=== PATIENT | female | born 1985 | race Caucasian/White ===

== ENCOUNTER 2020-03-11 22:02 | Emergency (ER) | payer MEDICAID, SELFPAY ==
[2020-03-11 22:23] VITALS: BP 150/99; PULSE 116; RESP 18; TEMP 36.8; O2SAT 98; BMI 24.1
[2020-03-12 01:20] VITALS: BP 153/100; PULSE 86; RESP 20; TEMP 37.1; O2SAT 95
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
[2020-03-12] MEDS: acetaminophen 500 mg Tablet PO (02:27)
== END 2020-03-12 02:52 | disposition home or self-care (01) ==
PROVIDERS: Emergency Provider Physician Assistant
DX: O9A.311 Physical abuse complicating pregnancy, first trimester (principal); Z3A.10 10 weeks gestation of pregnancy; R51 Headache; Y04.2XXA Assault by strike against or bumped into by another person, initial encounter; F17.210 Nicotine dependence, cigarettes, uncomplicated
CPT/HCPCS: 12345; 70450; 99281; 99283

== ENCOUNTER 2020-03-15 21:20 | Inpatient (IN) | payer MEDICAID, SELFPAY ==
[2020-03-15 21:26] VITALS: BP 153/95; PULSE 106; RESP 18; TEMP 36.2; O2SAT 91; BMI 24.1
[2020-03-15 21:59] LABS: Basophils % 0.4 %; Eosinophils # 0.1 10^3/uL (0.0-0.8); Eosinophils % 0.7 %; Hematocrit 37.7 % (37.0-47.0); Hemoglobin 11.5 g/dL (11.5-15.3); Lymphocytes # 2.6 10^3/uL (0.8-4.8); Lymphocytes % 30.7 %; Mean Corpuscular HGB Conc 30.5 g/dL (30.0-36.0); Mean Corpuscular Hemoglobin 29.9 pg (28.0-34.0); Mean Corpuscular Volume 97.9 fL (81-99); Mean Platelet Volume 10.6 fL (7.4-10.4); Monocytes # 0.5 10^3/uL (0.2-0.9); Neutrophils # 5.3 10^3/uL (1.8-7.7); Nucleated Red Blood Cells % 0 %; Platelet Count 281 10^3/cmm (130-400); Red Blood Count 3.85 10^6/uL (4.1-5.3); White Blood Count 8.5 10^3/uL (4.0-10.0)
--- NOTE | 2020-03-15 22:05 | ED_ITS ---
HPI - Psych General: Chief Complaint: Psychiatric Symptoms Stated Complaint: mhe Time Seen by Provider: 03/15/20 21:42 Source: patient Mode of arrival: ambulatory Limitations: no limitations History of Present Illness: HPI Narrative: 34-year-old female who is currently 10 weeks states she is an alcoholic and has been drinking. She states she also has depression and mother states she had made suicidal statements to someone. Patient denies active suicidality currently but states she is very depressed. Patient has drank today. She had sent a text to someone about drinking and taking amitriptyline to kill herself. Associated symptoms: Reports depression Review of Systems Const: Denies: fever(s), chills, body aches or change in appetite Eyes: Denies: blurry vision or eye discomfort ENMT: Denies: throat pain or dental pain Card: Denies: chest pain Resp: Denies: dyspnea GI: Denies: abdominal pain, nausea, vomiting or diarrhea : Denies: dysuria Musc: Denies: neck pain or back pain Skin/Breast: Denies: rash Neuro: Denies: headache(s) Psych: Reports: depression Luis/Lymph: Denies: easy bruising All/Imm: Denies: urticaria PFSH ED PFSH: Social History Smoking and tobacco status: current every day smoker Female Reproductive History: Date of last menstrual period: 12/27/19 Physical Exam Const: COMMON NORMALS: no acute distress, patient oriented x3 and healthy appearing HENMT: COMMON NORMALS: normocephalic and atraumatic HEAD & SCALP: normocephalic and atraumatic Eye: COMMON NORMALS: Equal, round and reactive pupils present and EOMs intact bilaterally PUPIL: Yes Equal, round and reactive pupils present Neck/C-Spine: COMMON NORMALS: full ROM and supple Chest: COMMONS NORMALS: normal inspection of the chest and normal palpation of entire chest wall Resp: COMMON NORMALS: normal respiratory effort, No retractions, No use of accessory muscles and clear to auscultation bilaterally AUSCULTATION: clear to auscultation bilaterally Cardio: COMMON NORMALS: regular rate, regular rhythm and No murmurs present (Cardio) RATE: regular rate RHYTHM: regular rhythm GI: COMMON NORMALS: Normal to inspection, nondistended, normoactive bowel sounds present, Soft to palpation, non-tender and no masses PALPATION: Yes Soft to palpation Extremity: COMMON NORMALS: normal to inspection and full ROM Neuro: COMMON NORMALS: patient oriented x3, moves all extremities and no focal motor deficits Psych: COMMON NORMALS: mental status grossly normal, Normal thought process present and cooperative MOOD & AFFECT: Yes depressed mood THOUGHT PROCESS: Normal thought process present Skin: COMMON NORMALS: no rashes or lesions noted and no wounds GENERAL SKIN EXAM: no rashes or lesions noted MDM - Psych MDM Narrative: Medical decision making narrative: Mackenzie presents here with depression along with alcoholism. Patient has no suicidality currently and patient's not placed under 96-hour hold. Patient voluntarily wants to be admitted. I spoke to Dr. Warner and will admit. Patient's bedside ultrasound showed no acute abnormalities and showed IUP with heart rate of 146. I spoke to Dr. Rodriguez to consult as she is . Lab Data: Labs: Lab Results 03/15/20 03/15/20 Range/Units 21:53 21:53 WBC 8.5 (4.0-10.0) 10^3/ uL RBC 3.85 L (4.1-5.3) 10^6/u L Hgb 11.5 (11.5-15.3) g/dL Hct 37.7 (37.0-47.0) % MCV 97.9 (81-99) fL MCH 29.9 (28.0-34.0) pg MCHC 30.5 (30.0-36.0) g/dL RDW 15.0 (12.1-15.1) % Plt Count 281 (130-400) 10^3/c mm MPV 10.6 H (7.4-10.4) fL Neut % (Auto) 62.0 % Lymph % (Auto) 30.7 % Craven % (Auto) 6.0 % Eos % (Auto) 0.7 % Baso % (Auto) 0.4 % Neut # (Auto) 5.3 (1.8-7.7) 10^3/u L Lymph # (Auto) 2.6 (0.8-4.8) 10^3/u L Craven # (Auto) 0.5 (0.2-0.9) 10^3/u L Eos # (Auto) 0.1 (0.0-0.8) 10^3/u L Baso # (Auto) 0.0 (0.0-0.1) 10^3/u L Nucleated RBC % (a uto) 0 % Nucleated RBCs # 0.0 /100WBC Sodium 139 (136-145) mmol/L Potassium 4.1 (3.5-5.1) mmol/L Chloride 102 (98-107) mmol/L Carbon Dioxide 23 (22-29) mmol/L Anion Gap 18.1 (5-19) BUN 5 L (6-20) mg/dL Creatinine 0.6 (0.5-0.9) mg/dL GFR Calculation 113.1 (90-130) mL/min Glucose 87 (65-115) mg/dL Calculated Osmolal ity 283 L (285-295) mOsm/k g Calcium 8.7 (8.5-10.5) mg/dL Total Bilirubin 0.2 (0.15-1.2) mg/dL ALT 12 (0-33) U/L Alkaline Phosphata se 60 (35-105) IU/L Total Protein 7.2 (6.6-8.7) g/dL Albumin 4.2 (3.5-5.2) g/dL Globulin 3.0 (1.3-4.6) g/dL Discharge Plan Discharge Patient Disposition: Admitted As Inpatient Clinical Impression: Depression Qualifiers: Depression Type: unspecified Qualified Code(s): F32.9 - Major depressive disorder, single episode, unspecified Qualifiers: Weeks of gestation: 11 weeks Qualified Code(s): Z3A.11 - 11 weeks gestation of Condition: Stable Coding Level of Care Code ED Fire Department Marine Engineer for g Fwd Exam Comprehensive
[2020-03-15 22:15] LABS: Alanine Aminotransferase 12 U/L (0-33); Albumin Level 4.2 g/dL (3.5-5.2); Alkaline Phosphatase 60 IU/L (35-105); Anion Gap 18.1 (5-19); Blood Urea Nitrogen 5 mg/dL (6-20); Calcium 8.7 mg/dL (8.5-10.5); Carbon Dioxide 23 mmol/L (22-29); Chloride 102 mmol/L (98-107); Glomerular Filtration Rate 113.1 mL/min (90-130); Glucose 87 mg/dL (65-115); Osmolality Calculated 283 mOsm/kg (285-295); Potassium 4.1 mmol/L (3.5-5.1); Sodium 139 mmol/L (136-145); Total Bilirubin 0.2 mg/dL (0.15-1.2); Total Protein 7.2 g/dL (6.6-8.7)
[2020-03-15 22:31] LABS: Acetaminophen < 5.0 ug/mL (10-30); Alcohol Level 304 mg/dL (0-10); Aspartate Amino Transferase 28 U/L (0-32); Salicylate < 0.3 mg/dL (3-10)
[2020-03-15 23:16] LABS: Amphetamines Screen Urine Negative (Negative); Barbiturates Screen Urine Negative (Negative); Benzodiazepines Screen Urine Negative (Negative); Cocaine Screen Urine Negative (Negative); Opiate Screen Urine Negative (Negative); PCP Screen Urine Negative (Negative); THC Screen Urine Negative (Negative)
[2020-03-15 23:17] LABS: HCG Qualitative Urine. Positive (Negative)
[2020-03-15 23:55] VITALS: BP 136/92; PULSE 84; RESP 18; O2SAT 99
--- NOTE | 2020-03-16 00:01 | PC.NURSE ---
i agree with this assessment
[2020-03-16 00:22] VITALS: BP 138/94; PULSE 95; RESP 18; TEMP 36.8; O2SAT 95
[2020-03-16 06:00] VITALS: BP 147/100; PULSE 90; RESP 17; TEMP 36.7; O2SAT 98
--- NOTE | 2020-03-16 06:29 | US_ITS ---
WS: [id number] ULTRASOUND OB LIMITED TECHNIQUE: Limited ultrasound examination of the fetus. CLINICAL INFORMATION: COMPARISON: None. FINDINGS: Cervix 3.1 cm Single interuterine gestation. Movement visualized. presentation is breech Placental location is anterior. Placenta grade: 0. heart rate 176 BPM. Anatomy: BDP: 2.4 cm = 14w0d HC: 8.9 cm = 14w0d AC: 7.3 cm = 13w6d FEMUR LENGTH: 1.2 cm = 13w3d Estimated weight: 80 g EGA by ultrasound: 13w6d MIKHAIL by ultrasound: 09/15/2020 US/US OB <= 14 weeks fetus [id number] IMPRESSION: 1. Single intrauterine gestation with movement visualized. 2. Presentation is breech with anterior placenta. 3. Normal adnexa. 4. Estimated gestational age 13 weeks 6 days with estimated delivery September 15, 2020
--- NOTE | 2020-03-16 10:25 | P.HP_ITS ---
Providers/Chief Complaint Admitting Physician: Abel Warner MD Referral Source: [facility] Chief Complaint: mhe HPI NPU History of Present Illness Mackenzie Leyva is a 34 year old female who is currently 13 weeks and states she is an alcoholic. Ultrasound shows viable fetus of EGA 13W6D. She has been drinking (BAL 0.304 mg/dL). She states she also has depression and mother states she had made suicidal statements to someone. Patient denies active suicidality currently but states she is very depressed. She is sad all the time but does not know why. Patient has drank today. She had sent a text to someone about drinking and taking amitriptyline to kill herself. She feels hopeless, anergic and has no motivation. She knows that drinking will alert the baby but cannot stop and so asked for admission. Review of Systems Narrative: Const: Denies: fever(s), chills, body aches or change in appetite Eyes: Denies: blurry vision or eye discomfort ENMT: Denies: throat pain or dental pain Card: Denies: chest pain Resp: Denies: dyspnea GI: Denies: abdominal pain, nausea, vomiting or diarrhea : Denies: dysuria Musc: Denies: neck pain or back pain Skin/Breast: Denies: rash Neuro: Denies: headache(s) Psych: Reports: depression Luis/Lymph: Denies: easy bruising All/Imm: Denies: urticaria Meds NPU Home Medications Medication Instructions Recorded Confirmed Last Taken Type acetaminophen [Tylenol] 325 mg PO QID PRN 03/15/20 03/15/20 03/15/20 History amitriptyline 50 mg PO BEDTIME 03/15/20 03/15/20 03/15/20 History calcium carbonate [Calcium 600] 300 mg PO DAILY 03/15/20 03/15/20 03/15/20 History vitamin B complex 1 tab PO DAILY 03/15/20 03/15/20 03/15/20 History Allergies Allergy/AdvReac Type Severity Reaction Status Date / Time Sulfa (Sulfonamide Allergy Intermediate ALGY-Rash Verified 03/15/20 21:42 Antibiotics) PFSH NPU PFSH: Social History Smoking and tobacco status: current every day smoker Other Psychiatric History: Other Psychiatric History: The patient is na?ve to inpatient treatment. She has been given amitriptyline to assist her with sleep, which is dangerous in a suicidal patient. Female Reproductive History: Date of last menstrual period: 11/26/19 control method: none : 3 Para: 2 Mental Status Exam MSE Comments: This is a 34-year-old female who presents at her stated age. She is clean, neat and not disheveled. Mood, however, is despondent and affect is flat. She describes inability to experience pleasure (anhedonia), anergy, lack of motivation, hopelessness and desperation to get off alcohol. Thought processes are organized and free of any racing, blocking or looseness of association. Cognitive functions are adequate for safety. Orientation is intact. Memory function, when she does not black out, is good. She denies suicidal or homicidal ideation, plan or intent. Insight and judgment are intact Vitals/I&O/Wt Last Vital Signs Temp 98.0 F 03/16/20 06:00 Pulse 90 03/16/20 06:00 Resp 17 03/16/20 06:00 BP 147/100 03/16/20 06:00 Pulse Ox 98 03/16/20 06:00 Weight last 48 hrs Weight 145 lb Physical Exam Narrative: EXAM NARRATIVE: Const: COMMON NORMALS: no acute distress, patient oriented x3 and healthy appearing HENMT: COMMON NORMALS: normocephalic and atraumatic HEAD & SCALP: normocephalic and atraumatic Eye: COMMON NORMALS: Equal, round and reactive pupils present and EOMs intact bilaterally PUPIL: Yes Equal, round and reactive pupils present Neck/C-Spine: COMMON NORMALS: full ROM and supple Chest: COMMONS NORMALS: normal inspection of the chest and normal palpation of entire chest wall Resp: COMMON NORMALS: normal respiratory effort, No retractions, No use of accessory muscles and clear to auscultation bilaterally AUSCULTATION: clear to auscultation bilaterally Cardio: COMMON NORMALS: regular rate, regular rhythm and No murmurs present (Cardio) RATE: regular rate RHYTHM: regular rhythm GI: COMMON NORMALS: Normal to inspection, nondistended, normoactive bowel sounds present, Soft to palpation, non-tender and no masses PALPATION: Yes Soft to palpation Extremity: COMMON NORMALS: normal to inspection and full ROM Neuro: COMMON NORMALS: patient oriented x3, moves all extremities and no focal motor deficits Psych: See MSE. Skin: COMMON NORMALS: no rashes or lesions noted and no wounds GENERAL SKIN EXAM: no rashes or lesions noted. Data NPU : 03/15/20 21:53 03/15/20 21:53 A&P Assessment and plan (1) : I have consulted with Dr. Rodriguez. Recovery Operator and I agree that Wellbutrin (risk category B), which is the only antidepressant at that low risk category, Status: Chronic Qualifiers: Weeks of gestation: 11 weeks Qualified Code(s): Z3A.11 - 11 weeks gestation of (2) Depression: The patient will be placed on Wellbutrin and involved in milieu. Dischar ge referral will include a rehab program. Follow-up at [facility] will be necessitated. Status: Acute Qualifiers: Depression Type: unspecified Qualified Code(s): F32.9 - Major depressive disorder, single episode, unspecified Involuntary Hold Information 96 Hour Hold: 96 Hour Involuntary Admission: No Attestations NPU Medical Necessity Statement*: This is a complex case involving a fetus as well as the mother. I anticipate 7-10 midnights additional hospitalization. Time Spent in Patient Care: Greater than 35 minutes (>than 50% of time spent in counselling and/or direct pt care on unit) . Consultation with staff and with Dr. Rodriguez. Interview with patient and patient education. Consultation with hospital pharmacist and research regarding risk categories of various psychotropics. Documentation. 80 minutes Coding Level of Care Code Acute Manager Internal for Chg Fwd Diagnoses Z3A.11 Weeks of gestation: 11 weeks Depression F32.9 Depression Type: unspecified
[2020-03-16 12:34] VITALS: BP 143/97; PULSE 88; RESP 18; TEMP 37.3; O2SAT 100
[2020-03-16] MEDS: buPROPion SR (12 HR) 100 mg Tablet PO (16:37)
--- NOTE | 2020-03-16 16:57 | P.PN_ITS ---
Subjective Subjective: Interval history: 34-year-old female with an EGA of 13+6 weeks by ultrasound. Admitted due to depressed mood. High risk due to alcohol consumption endometrium early . Vitals/I&O/Wt Last Vital Signs Temp 98.7 F 03/18/20 06:00 Pulse 92 03/18/20 06:00 Resp 22 H 03/18/20 06:00 BP 127/88 03/18/20 06:00 Pulse Ox 98 03/18/20 06:00 Physical Exam Narrative: EXAM NARRATIVE: Const: COMMON NORMALS: no acute distress, patient oriented x3 and healthy appearing HENMT: COMMON NORMALS: normocephalic and atraumatic HEAD & SCALP: normocephalic and atraumatic Eye: COMMON NORMALS: Equal, round and reactive pupils present and EOMs intact bilaterally PUPIL: Yes Equal, round and reactive pupils present Neck/C-Spine: COMMON NORMALS: full ROM and supple Chest: COMMONS NORMALS: normal inspection of the chest and normal palpation of entire chest wall Resp: COMMON NORMALS: normal respiratory effort, No retractions, No use of accessory muscles and clear to auscultation bilaterally AUSCULTATION: clear to auscultation bilaterally Cardio: COMMON NORMALS: regular rate, regular rhythm and No murmurs present (Cardio) RATE: regular rate RHYTHM: regular rhythm GI: COMMON NORMALS: Normal to inspection, nondistended, normoactive bowel sounds present, Soft to palpation, non-tender and no masses PALPATION: Yes Soft to palpation Extremity: COMMON NORMALS: normal to inspection and full ROM Neuro: COMMON NORMALS: patient oriented x3, moves all extremities and no focal motor deficits Psych: COMMON NORMALS: mental status grossly normal, Normal thought process present and cooperative MOOD & AFFECT: Yes depressed mood THOUGHT PROCESS: Normal thought process present Skin: COMMON NORMALS: no rashes or lesions noted and no wounds GENERAL SKIN EXAM: no rashes or lesions noted Data : 03/15/20 21:53 03/15/20 21:53 A&P Assessment and plan (1) : 34-year-old female admitted [facility] with major depression. She was unaware that she was until recently. She refers a last menstrual period was somewhere around November. Her EGA by ultrasound is 13w6d. He had been consuming alcohol and lithium early . Patient was encouraged to start care as soon as she is discharge home. Status: Chronic Qualifiers: Weeks of gestation: 11 weeks Qualified Code(s): Z3A.11 - 11 weeks gestation of Attestations Medical Necessity Statement*: In my professional opinion per admitting diagnosis Coding Level of Care Code Acute Van Driver Helper for Chg Fwd Diagnoses Z3A.11 Weeks of gestation: 11 weeks
[2020-03-16 20:38] VITALS: BP 155/105; PULSE 82; RESP 18; TEMP 37; O2SAT 99
[2020-03-17 06:00] VITALS: BP 144/99; PULSE 83; RESP 17; TEMP 36.6; O2SAT 98
[2020-03-17] MEDS: buPROPion SR (12 HR) 100 mg Tablet PO ×2 (08:28→17:25)
[2020-03-17 12:42] VITALS: BP 148/101; PULSE 91; RESP 18; TEMP 37.2
--- NOTE | 2020-03-17 15:21 | PM.NPN ---
Subjective NPU Subjective: Interval history: The patient is feeling much better now. Her mood is brighter and there is no hopelessness in evidence any longer. Another problem has been languishing in the background. She is mildly hypertensive and, after a modicum of research and consultation with the pharmacist, the lisinopril on which she had been is discontinued and replaced with labetalol. We'll have to monitor her blood pressure. Medications: Reviewed: Yes Medication Review Details: Current Medications Acetaminophen (Tylenol) 325 mg PO QID PRN PRN Reason: Pain Bupropion HCl (Wellbutrin Sr (12 Hr)) 100 mg PO BID [facility] Last Admin: 03/17/20 08:28 Dose: 100 mg Documented by: Labetalol HCl (Trandate) 100 mg PO BID [facility] Non-Formulary Medication (Vitamin B Complex) 1 tab PO DAILY [facility] Non-Formulary Medication (Calcium Carbonate [Calcium 600]) 300 mg PO DAILY [facility] Mental Status Exam MSE Comments: This is a 34-year-old female who presents at her stated age. She is clean, neat and not disheveled. Mood is much brighter and affect is variegated and appropriate. She no longer manifest symptoms of a depressive episode. Thought processes are organized and free of any racing, blocking or looseness of association. Cognitive functions are adequate for safety. Orientation is intact. Memory function, when she does not black out, is good. She denies suicidal or homicidal ideation, plan or intent. Insight and judgment are intact. Vitals/I&O/Wt Last Vital Signs Temp 98.9 F 03/17/20 12:42 Pulse 91 03/17/20 12:42 Resp 18 03/17/20 12:42 BP 148/101 03/17/20 12:42 Pulse Ox 98 03/17/20 06:00 Weight last 48 hrs Weight 145 lb Data NPU : 03/15/20 21:53 03/15/20 21:53 A&P Assessment and plan (1) Depression: Patient is responding to pharmacotherapy and milieu. Status: Acute Qualifiers: Depression Type: unspecified Qualified Code(s): F32.9 - Major depressive disorder, single episode, unspecified (2) : Consultation with Dr. Michael salinas has no concerns. Status: Chronic Qualifiers: Weeks of gestation: 11 weeks Qualified Code(s): Z3A.11 - 11 weeks gestation of Involuntary Hold Information 96 Hour Hold: 96 Hour Involuntary Admission: No Attestations NPU Medical Necessity Statement*: Placement will require at least 2 midnights additional time Time Spent in Patient Care: Greater than 35 minutes (>than 50% of time spent in counselling and/or direct pt care on unit). Coding Level of Care Code Acute [employer] Professor for [place] Diagnoses Depression F32.9 Depression Type: unspecified Z3A.11 Weeks of gestation: 11 weeks
[2020-03-17] MEDS: labetalol 200 mg Tablet 100 MG PO (17:25)
[2020-03-17] MEDS: acetaminophen 325 mg Tablet PO (21:30)
[2020-03-17 22:00] VITALS: BP 145/90; PULSE 85; RESP 20; TEMP 37.1; O2SAT 97
[2020-03-18 06:00] VITALS: BP 127/88; PULSE 92; RESP 22; TEMP 37.1; O2SAT 98
[2020-03-18] MEDS: blistex lip oint 7 gm Tube 1 APPLIC TOPICAL ×2 (06:08→08:57)
[2020-03-18] MEDS: buPROPion SR (12 HR) 100 mg Tablet PO (08:58)
[2020-03-18] MEDS: labetalol 200 mg Tablet 100 MG PO (08:58)
[2020-03-18] MEDS: prenatal vitamin Capsule 1 CAP PO (11:31)
--- NOTE | 2020-03-18 12:13 | P.DS_ITS ---
Diagnoses at Discharge Discharge Diagnosis (1) : Status: Chronic Qualifiers: Weeks of gestation: 11 weeks Qualified Code(s): Z3A.11 - 11 weeks gestation of Reason for Visit Reason for Visit: mhe Brief History: History of Present Illness Mackenzie Leyva is a 34 year old female who is currently 13 weeks and states she is an alcoholic. Ultrasound shows viable fetus of EGA 13W6D. She has been drinking (BAL 0.304 mg/dL). She states she also has depression and mother states she had made suicidal statements to someone. Patient denies active suicidality currently but states she is very depressed. She is sad all the time but does not know why. Patient has drank today. She had sent a text to someone about drinking and taking amitriptyline to kill herself. She feels hopeless, anergic and has no motivation. She knows that drinking will alert the baby but cannot stop and so asked for admission. Hospital Course Hospital Course The patient presented to the emergency room with nataliia intoxication and with a blood alcohol level of 304. She was noted to be thirteen weeks , was depressed, and was feeling like she needed to do something or things were going to get really bad. She was admitted to the neuropsychiatric unit for definitive treatment of those issues. While on the unit, she quickly acclimated to the individual, group, and milieu therapy. She clearly identified the need for ongoing treatment, versus what she had been doing to try to discontinue her drinking. She was not started on anything other than Wellbutrin SR 100 mg po bid, mostly secondary to her status. She was reporting significant improvement with the medication and an eagerness to pursue treatment and get things turned around. During the hospitalization, the patient had routine laboratory studies which were within normal limits, except for a few outliers. Additionally, she had a general medical evaluation which was within normal limits and revealed no new acute processes, except for the intoxication and withdrawal. Discharge Summary At the time of discharge the patient denied all lethality, was absent psychosis, and mood and anxiety were well managed. The patient endorsed a plan to avoid all drugs of abuse and to follow-up with outpatient services, as recommended. She was evaluated and deemed to be absent credible lethality, and had achieved the maximum benefit from an inpatient hospitalization, and so she was discharged. Involuntary Hold Information 96 Hour Hold: 96 Hour Involuntary Admission: No Mental Status Exam MSE Comments: This is a well-nourished, well-developed, white female, with adequate dress, grooming, and eye contact. No abnormal movements. Cooperative with exam in no acute distress. Speech was normal rate and volume. Mood described as much better; affect congruent. Thought process, organized. Thought content: patient denied any suicidal or homicidal ideation, there were no delusions reported or noted, patient denied any auditory or visual hallucinations. Attention, concentration, and memory appeared intact but none were formally tested. She is alert and oriented times three. Insight and judgment are good. Discharge Data Data Completed and Pending: Completed Studies During Hospitalization Category Date Time Status US OB <= 14 weeks fetus [id number] Routi ne Ultrasound 03/16/20 06:29 Completed Vitals: Last Vital Signs Temp 98.7 F 03/18/20 06:00 Pulse 92 03/18/20 06:00 Resp 22 H 03/18/20 06:00 BP 127/88 03/18/20 06:00 Pulse Ox 98 03/18/20 06:00 Discharge Plan Discharge Patient Disposition: Home, Self-Care Condition: Stable Prescriptions: New labetalol 200 mg Tablet 100 mg PO BID 30 Days Qty: 30 RF: 2 bupropion HCl 100 mg Tablet Sustained-Release 12 Hr 100 mg PO BID 30 Days Qty: 60 RF: 2 -U 106.5-1 mg Capsule 1 cap PO DAILY 30 Days Qty: 30 RF: 2 Continued Tylenol 325 mg Tablet 325 mg PO QID PRN (Reason: Pain) RF: 0 Calcium 600 600 mg calcium (1,500 mg) Tablet 300 mg PO DAILY RF: 0 vitamin B complex Tablet 1 tab PO DAILY RF: 0 Discontinued amitriptyline 50 mg tablet 50 mg PO BEDTIME RF: 0 Discharge Orders: Discharge Order (Routine); Ordered 03/18/20 Ordered By: Abel Warner Referrals: [facility] [Outside] - 1-3 days ([facility] is also known as [facility]. You will want to given them completed intake paperwork and request initial intake. You should have the paperwork to fill out to provide to them. Regardless, stop by or call if you need new paperwork or you have a question. You can stop by there between the hours of 7:30 a.m. and 2:30 p.m. any day Sunday through Chris. You can tell [facility] staff that you are interested in psychiatric medication management, individual therapy and case management services. ) [facility] [Outside] - 1-3 days (to receive outpatient substance abuse treatment or residential treatment for substance abuse you will need to call and check on your referral. The paperwork you filled out has been faxed to [facility] (also known as [facility] or [facility]). ) Edmund Rodriguez MD [Physician] - 03/19/20 1:30 pm Discharge Diet: Regular Discharge Activity: Resume usual activity Patient Instructions: Labetalol (By mouth), Bupropion (By mouth), Vitamins (By mouth) Discharge Date/Time: 03/18/20 12:32 Discharge Attestations NPU Time Spent in Discharge Care*: less than 30 min Specific Discharge Activities: Specific discharge activities: educating patient, discussing with rehabilitation caseworker/social workers/dc planners, documenting/other paperwork and evaluating patient/reviewing data Coding Level of Care Code Acute Commissioning Specialist for Chg Fwd Diagnoses Z3A.11 Weeks of gestation: 11 weeks
[2020-03-18 12:18] VITALS: BP 127/88; PULSE 92; RESP 22; TEMP 37.1; O2SAT 98
== END 2020-03-18 12:32 | disposition home or self-care (01) | DRG 832 ==
LOC: ER 22:24 → NP 23:28
PROVIDERS: Emergency Medicine; Admitting Provider Psychiatry & Neurology Psychiatry; Visit Provider Psychiatry & Neurology Psychiatry
DX: O99.311 Alcohol use complicating pregnancy, first trimester (principal); R45.851 Suicidal ideations; F10.229 Alcohol dependence with intoxication, unspecified; O99.341 Other mental disorders complicating pregnancy, first trimester; F32.9 Major depressive disorder, single episode, unspecified; Z3A.13 13 weeks gestation of pregnancy; O99.331 Smoking (tobacco) complicating pregnancy, first trimester; O26.891 Other specified pregnancy related conditions, first trimester
CPT/HCPCS: 12345; 36415; 76801; 80053; 80306; 80307; 81025; 85025; 99284

== ENCOUNTER → 2022-08-03 10:16 | Outpatient (BNVA) | payer MEDICAID, SELFPAY | PROVIDERS: Visit Provider Family Medicine | DX: K74.60 Unspecified cirrhosis of liver (principal); E03.9 Hypothyroidism, unspecified; K70.31 Alcoholic cirrhosis of liver with ascites; K70.9 Alcoholic liver disease, unspecified; D72.829 Elevated white blood cell count, unspecified; F10.20 Alcohol dependence, uncomplicated; E44.0 Moderate protein-calorie malnutrition; F32.1 Major depressive disorder, single episode, moderate; G47.00 Insomnia, unspecified | CPT/HCPCS: 80053; 84439; 84443; 85025 ==